=== PATIENT | female | born 1980 | race Caucasian/White ===

== ENCOUNTER 2017-07-16 09:16 | Emergency (ER) | payer OTHER ==
[2017-07-16] MEDS: SOD CHLORIDE 0.9% 1,000 ML IV (10:57)
[2017-07-16 11:07] LABS: ADD MAN DIFF? NO
[2017-07-16 11:10] LABS: BASOPHILS % 0.3 % (0.0-2.0); EOSINOPHILS % 0.1 % (0.0-7.0); HEMATOCRIT 41.3 % (37.0-47.0); HEMOGLOBIN 13.8 g/dl (12.0-16.0); LYMPHOCYTES % 9.9 % (15.0-51.0); MEAN CORPUSCULAR HEMOGLOBIN 28.2 pg (29.0-33.0); MEAN CORPUSCULAR HGB CONC 33.4 g/dl (32.0-37.0); MEAN CORPUSCULAR VOLUME 84.5 fl (82.0-101.0); MEAN PLATELET VOLUME 9.7 fl (7.4-10.4); MONOCYTE # 0.4 10^3/ul (0.3-0.9); MONOCYTES % 4.1 % (0.0-11.0); NEUTROPHIL # 8.3 10^3/ul (1.6-7.5); NEUTROPHILS % 84.9 % (39.0-77.0); PLATELET COUNT 331 10^3/UL (140-415); RED BLOOD COUNT 4.89 10^6/ul (4.20-5.40); RED CELL DISTRIBUTION WIDTH 12.7 % (11.5-14.5)
[2017-07-16 11:10] LABS: WHITE BLOOD COUNT 9.8 10^3/ul (4.8-10.8)
[2017-07-16] MEDS: morphine 4 MG/ML VIAL IV (11:22)
[2017-07-16] MEDS: ONDANSETRON 4 MG INJ IV (11:22)
[2017-07-16 11:37] LABS: ALANINE AMINOTRANSFERASE 26 IU/L (13-69); ALBUMIN 4.7 g/dl (3.3-4.9); ALBUMIN/GLOBULIN RATIO 1.51; ALKALINE PHOSPHATASE 74 IU/L (42-121); ANION GAP 23 (8-16); ASPARTATE AMINO TRANSFERASE 23 IU/L (15-46); BILIRUBIN,INDIRECT 0.5 mg/dl (0-1.1); BILIRUBIN,TOTAL 0.5 mg/dl (0.2-1.3); BLOOD UREA NITROGEN 11 mg/dl (7-20); CALCIUM 9.6 mg/dl (8.4-10.2); CARBON DIOXIDE 19 mmol/L (21-31); CHLORIDE 106 mmol/L (97-110); CREATININE 0.69 mg/dl (0.44-1.00); GLUCOSE 189 mg/dl (70-220); LIPASE 56 U/L (23-300); POTASSIUM 3.8 mmol/L (3.5-5.1); SODIUM 144 mmol/L (135-144); TOTAL PROTEIN 7.8 g/dl (6.1-8.1)
== END 2017-07-16 14:52 | disposition home or self-care (01) ==
LOC: E/R 09:16
DX: R10.84 Generalized abdominal pain (principal)
CPT/HCPCS: 36415; 71010; 74176; 80053; 83690; 85025; 93005; 96374; 96375; 99285-25

== ENCOUNTER 2017-07-20 13:39 | Emergency (ER) | payer OTHER | END 2017-07-20 20:42 | disposition home or self-care (01) | LOC: E/R 20:42 | DX: G51.0 Bell's palsy (principal) | CPT/HCPCS: 99284; Z7502 ==